=== PATIENT | female | born 1990 | race African-American/Black ===

== ENCOUNTER 2017-02-23 11:05 | Emergency (ER) | payer BC, OTHER ==
[~2017-02-23] VITALS: Ht 167.6 cm; Wt 88.5 kg
[~2017-02-23 11:05] MED LIST: CARAFATE 1 GM TA1 G1 PO; FLAGYL500 MG PO; NOHOMEMEDICATIONS; PEPCID20 MG PO
[2017-02-23 11:06] VITALS: BP 111/73
[2017-02-23] MEDS ORDERED: IBUPROFEN 800800 M1 PO (11:41)
[2017-02-23] MEDS ORDERED: CLARITIN-D 12 H1 TA1 PO (11:41)
== END 2017-02-23 12:05 | disposition home or self-care (01) ==
LOC: ER 11:05
DX: J02.9 Acute pharyngitis, unspecified (principal); J34.89 Other specified disorders of nose and nasal sinuses; F10.99 Alcohol use, unspecified with unspecified alcohol-induced disorder

== ENCOUNTER 2018-10-10 09:23 | Emergency (ER) | payer OTHER ==
[~2018-10-10] VITALS: Ht 167.6 cm; Wt 93.0 kg
[~2018-10-10 09:23] MED LIST changes: +CLARITIN-D 12 H1 TA1 PO; +IBUPROFEN 800800 M1 PO
[2018-10-10 09:58] LABS: URINE BILIRUBIN NEGATIVE (Negative); URINE BLOOD NEGATIVE (Negative); URINE CLARITY CLEAR; URINE COLOR YELLOW; URINE GLUCOSE-RANDOM* NEGATIVE (Negative); URINE KETONES NEGATIVE (Negative); URINE LEUKOCYTES-REFLEX NEGATIVE (Negative); URINE NITRITE-REFLEX NEGATIVE (Negative); URINE PROTEIN (DIPSTICK) NEGATIVE (Negative); URINE UROBILINOGEN 0.2 E.U./dl (0.2-1.0)
[2018-10-10 10:07] LABS: ABSOLUTE NEUTROPHILS 4.7 thou/uL (1.4-8.2); BASOPHILS 0.7 % (0.0-2.0); EOSINOPHILS 1.4 % (0.0-3.0); HEMOGLOBIN 10.4 gm/dL (12.0-15.0); LYMPHOCYTES 19.2 % (24.0-44.0); MCH 31.2 pg (26.0-34.0); MCHC 33.6 g/dL (28.0-37.0); MCV 92.9 fL (80.0-100.0); MONOCYTES 7.2 % (1.0-8.0); PLATELET COUNT 212 thou/uL (150-400); POLYS 71.5 % (36.0-66.0); RBC 3.34 mil/uL (4.20-5.00); RDW 14.5 % (10.5-14.5); WBC 6.6 thou/uL (4.0-11.0)
[2018-10-10 10:12] LABS: CALCIUM 8.5 mg/dL (8.5-10.1); CREATININE 0.8 mg/dL (0.6-1.0); POTASSIUM 3.7 mmol/L (3.5-5.1)
[2018-10-10 10:18] LABS: ALBUMIN 3.4 g/dL (3.4-5.0); TOTAL BILIRUBIN 0.5 mg/dL (<0.1-1.0); TOTAL PROTEIN 7.5 g/dL (6.4-8.2)
[2018-10-10 13:12] VITALS: BP 112/69
== END 2018-10-10 13:33 | disposition short-term general hospital (02) ==
LOC: ER 09:23
PROVIDERS: Emergency Medicine
DX: O26.899 Other specified pregnancy related conditions, unspecified trimester (principal); R10.2 Pelvic and perineal pain; Z3A.00 Weeks of gestation of pregnancy not specified

== ENCOUNTER 2019-01-12 10:42 | Emergency (ER) | payer OTHER ==
[~2019-01-12] VITALS: Ht 167.6 cm; Wt 88.5 kg
[2019-01-12 11:06] LABS: URINE BILIRUBIN NEGATIVE (Negative); URINE BLOOD 2+ (Negative); URINE CLARITY CLEAR; URINE COLOR YELLOW; URINE GLUCOSE-RANDOM* NEGATIVE (Negative); URINE KETONES NEGATIVE (Negative); URINE LEUKOCYTES-REFLEX NEGATIVE (Negative); URINE NITRITE-REFLEX NEGATIVE (Negative); URINE PROTEIN (DIPSTICK) NEGATIVE (Negative); URINE SPECIFIC GRAVITY 1.015 (1.005-1.035); URINE UROBILINOGEN 0.2 E.U./dl (0.2-1.0)
[2019-01-12 11:19] LABS: SQUAMOUS 4-10 Moderate /LPF (0-3)
[2019-01-12 11:20] LABS: BACTERIA-REFLEX 1-9 Few /HPF (None Seen); CASTS None Seen /LPF (None Seen); CRYSTALS None Seen /LPF (None Seen); URINE RBC 3-10 Few /HPF (0-2); URINE WBC-REFLEX None Seen /HPF (0-5)
[2019-01-12] MEDS ORDERED: IBUPROFEN 800800 M1 PO (12:56)
[2019-01-12] MEDS ORDERED: FLAGYL500 M1 PO (12:56)
[2019-01-12 14:02] VITALS: BP 106/62
== END 2019-01-12 13:59 | disposition home or self-care (01) ==
LOC: ER 10:42
PROVIDERS: Nurse Practitioner Family
DX: N76.0 Acute vaginitis (principal); B96.89 Other specified bacterial agents as the cause of diseases classified elsewhere; R10.2 Pelvic and perineal pain

== ENCOUNTER 2019-09-04 10:24 | Emergency (ER) | payer OTHER ==
[~2019-09-04] VITALS: Ht 167.6 cm; Wt 88.5 kg
[~2019-09-04 10:24] MED LIST changes: +FLAGYL500 M1 PO
[2019-09-04 13:37] LABS: ABSOLUTE NEUTROPHILS 5.1 thou/uL (1.4-8.2); BASOPHILS 0.5 % (0.0-2.0); EOSINOPHILS 2.1 % (0.0-3.0); HEMATOCRIT 38.1 % (37.0-47.0); HEMOGLOBIN 12.5 gm/dL (12.0-15.0); LYMPHOCYTES 23.3 % (24.0-44.0); MCH 31.4 pg (26.0-34.0); MCHC 32.7 g/dL (28.0-37.0); MCV 95.9 fL (80.0-100.0); MONOCYTES 6.3 % (1.0-8.0); PLATELET COUNT 219 thou/uL (150-400); POLYS 67.8 % (36.0-66.0); RBC 3.98 mil/uL (4.20-5.00); RDW 12.6 % (10.5-14.5); WBC 7.5 thou/uL (4.0-11.0)
[2019-09-04 13:47] LABS: ANION GAP 5 mmol/L (7-16); BUN 11 mg/dL (7-18); CALCIUM 8.7 mg/dL (8.5-10.1); CHLORIDE 102 mmol/L (98-107); CO2 30 mmol/L (21-32); CREATININE 0.8 mg/dL (0.6-1.0); GLUCOSE 85 mg/dL (74-106); POTASSIUM 4.4 mmol/L (3.5-5.1); SODIUM 137 mmol/L (136-145)
[2019-09-04 13:57] LABS: ALBUMIN 3.4 g/dL (3.4-5.0); SGOT 27 U/L (15-37); SGPT 40 U/L (30-65); TOTAL BILIRUBIN 0.3 mg/dL (<0.1-1.0); TOTAL PROTEIN 7.5 g/dL (6.4-8.2); TROPONIN-I <0.06 ng/mL (<0.06)
[2019-09-04] MEDS ORDERED: PRILOSEC OTC20 MG PO (14:19)
--- NOTE | 2019-09-04 14:19 | EKG ---
[facility] [place] [address] ELECTROCARDIOGRAM REPORT Name: DARÍO CAMERON Room #: REG [facility]#: [id number] Admission: 09/04/19 Attend Phys: Discharge: Date of : 89 Report #: [id number] THIS REPORT FOR: cc: FAM - Family physician unknown FAM - Family physician unknown Aftab Silver MD ~ THIS REPORT FOR: //name// [facility] ED Test Date: 2019-09-04 Test Time: 10:27:43 Pat Name: DARÍO CAMERON Department: Room: Gender: F [employer] Cutting Machine Operator: LUDIVINA : 1990 Requested By: Alexandria Dowell Order Number: [id number] MD: Aftab Silver Measurements Intervals [place] Rate: 95 P: 30 IA: 155 QRS: 10 QRSD: 89 T: 27 QT: 334 QTc: 420 Interpretive Statements Sinus rhythm Compared to ECG 01/01/2016 16:23:49 No significant changes Electronically Signed On 09-04-2019 14:18:25 CDT by Aftab Silver [email or web address] <ELECTRONICALLY SIGNED> By: Aftab Silver MD 09/04/19 1418 26 Aftab Silver MD /OCTAVIA
[2019-09-04 14:30] VITALS: BP 102/66
== END 2019-09-04 14:31 | disposition home or self-care (01) ==
LOC: ER 10:24
PROVIDERS: Emergency Medicine
DX: R07.89 Other chest pain (principal); R47.02 Dysphasia; R06.02 Shortness of breath; M54.9 Dorsalgia, unspecified; R14.0 Abdominal distension (gaseous)